=== PATIENT | male | born 2005 | race Caucasian/White ===

== ENCOUNTER 2024-11-12 15:08 | Emergency (ER) | payer MEDICAID ==
[~2024-11-12] VITALS: Ht 175.3 cm; Wt 81.6 kg
[2024-11-12 15:25] VITALS: O2SAT 100
[2024-11-12] MEDS: DEXAMETHASONE 10 MG/ML VIAL PO ONE (15:52)
[2024-11-12] MEDS: KETOROLAC 15MG/ML VIAL IM ONE (15:52)
[2024-11-12 17:05] LABS: MONOTEST NEGATIVE (NEGATIVE)
[2024-11-12] MEDS ORDERED: AMOX1TAB16 MT (18:17)
[2024-11-12] MEDS ORDERED: CLOT15CR27 TP (18:25)
[2024-11-12 18:32] VITALS: BP 128/84; PULSE 87; RESP 16; TEMP 36.8; O2SAT 100
[2024-11-12 20:54] LABS: INFLUENZA TYPE A Presumptive Negative (Pres. Neg.)
[2024-11-12 20:55] LABS: INFLUENZA TYPE B Presumptive Negative (Pres. Neg.)
== END 2024-11-12 18:35 | disposition home or self-care (01) ==
LOC: ER 15:08
DX: J02.9 Acute pharyngitis, unspecified (principal); Z20.822 Contact with and (suspected) exposure to COVID-19
CPT/HCPCS: 87430; 86308; 87070; 87804 ×2; 96372; 99283; 87426; J1100; J1885; Z7610